=== PATIENT | female | born 1990 | race Two or more races ===

== ENCOUNTER → 2016-11-15 | Outpatient (CLI) | payer OTHER ==
--- NOTE | ~2016-11-15 | US6 ---
[facility] A Service of [facility] & [facility] RADIOLOGY TEXT RESULTS PATIENT: CANELO KING LOCATION: [facility] : [birth year] UNIT #: [id number] AGE: [address]: Josefina Lion SEX: F ORDER DR: [id number] [facility] [address] [place], [place] [address] [id number] O MR#: [id number] Acc #: [id number] NAME: CANELO KING : 1990 SEX: F STUDY DATE/TIME: 11/15/2016 9:20 UNIT: [facility] ROOM: STUDY DESCRIPTION: US Abdominal Limited Attending Physician: Josefina Lion Referring Physician: Josefina Lion Ordering Physician: Josefina Hernández A.P.R.N. Primary Care Physician: Josefina Lion MEDICAL IMAGING REPORT This report is preliminary unless electronic signature is present EXAM Right upper quadrant abdominal ultrasound INDICATIONS Right upper quadrant abdominal pain and nausea for the past 2 weeks worse over the past 2 days. PROCEDURE Pinto-scale and Doppler imaging right upper quadrant of the abdomen COMPARISON None FINDINGS Visualized portions of pancreas are unremarkable. Liver measures 15.3 cm. No liver mass on submitted images. Right kidney measures 10.5 cm. No hydronephrosis. Unremarkable gallbladder. Common duct measures 2 mm. IMPRESSION Negative Dictated by... Navin Ramirez M.D. THIS IS AN ELECTRONICALLY VERIFIED REPORT Navin Ramirez M.D. at 11/16/2016 7:06 AM EED/to TD: 11/15/2016 11:34 JOB #: [id number] MEDICAL IMAGING REPORT Page 1 of 1 COPY
== END | disposition home or self-care (01) ==
LOC: CGUS 08:43
DX: R10.819 Abdominal tenderness, unspecified site (principal)
CPT/HCPCS: 76705